=== PATIENT | male | born 1960 | race Caucasian/White ===

== ENCOUNTER 2024-01-02 21:00 | Emergency (ER) | payer OTHER, SELFPAY ==
[2024-01-02 21:05] VITALS: BP 147/87; PULSE 56; TEMP 36.6; O2SAT 98; BMI 19.7
--- NOTE | 2024-01-02 21:26 | ED.DENTAL1 ---
HPI - Dental/Oral General Chief complaint: Dental/Oral Stated complaint: MOUTH PAIN/INJURY Time Seen by Provider: 01/02/24 21:23 Source: patient Mode of arrival: walk-in Limitations: no limitations History of Present Illness HPI Narrative: patient has very poor dentition. planning on having dentures. Working in his yard yesterday and was struck by a tree branch left jaw/mouth. His left lower premolar tooth is loose and there is surrounding swelling and pain. Taking tylenol but not getting any relief Related Data Allergies Allergy/AdvReac Type Severity Reaction Status Date / Time No Known Drug Allergies Allergy Verified 01/02/24 21:08 Review of Systems ROS Status of ROS 10 or more systems reviewed and unremarkable except as noted in history and below Exam Constitutional Vital Signs, click to edit/add: Last Vital Signs Temp 97.8 F 01/02/24 21:05 Pulse 56 L 01/02/24 21:05 Resp 16 01/02/24 21:05 BP 147/87 H 01/02/24 21:05 Pulse Ox 98 01/02/24 21:05 O2 Del Method Room Air 01/02/24 21:05 Common normals: no apparent distress, average body habitus, oriented x3, no limitations, healthy appearing, alert and well nourished [facility] Common normals: normocephalic and head/scalp atraumatic Face and sinus images: 1. mild swelling Eye Common normals: EOMs intact bilaterally and conjunctivae normal Respiratory Other: diminished breath sounds Cardio Common normals: regular rate, regular rhythm, S1 normal heart sound and S2 normal heart sound Extremity Common normals: normal to inspection and full ROM Neuro Common normals: oriented x3, CN's II-XII intact bilaterally, moves all extremities, no focal motor deficits and no sensory deficits noted Psych Appearance: grossly normal Course Vital Signs Vital signs: Vital Signs Temperature 97.8 F 01/02/24 21:05 Pulse Rate 56 L 01/02/24 21:05 Respiratory Rate 16 01/02/24 21:05 Blood Pressure 147/87 H 01/02/24 21:05 Pulse Oximetry 98 01/02/24 21:05 Oxygen Delivery Method Room Air 01/02/24 21:05 Temperature 97.8 F 01/02/24 21:05 Pulse Rate 56 L 01/02/24 21:05 Respiratory Rate 16 01/02/24 21:05 Blood Pressure 147/87 H 01/02/24 21:05 Pulse Oximetry 98 01/02/24 21:05 Oxygen Delivery Method Room Air 01/02/24 21:05 MDM - Dental/Oral MDM Narrative Medical decision making narrative: has multiple dental caries. Struck in his mouth yesterday and now has loose lower left premolar and swelling and pain. Will treat as dental abscess with amoxicillin and recommend he use ibuprofen for pain Discharge Plan Discharge Stand Alone Forms: Portal Instructions Chief Complaint: Dental/Oral Clinical Impression: Dental abscess Patient Disposition: Home, Self-Care Print Language: Sinhala Instructions: Dental Abscess (ED) Additional Instructions: follow up with your dentist next week. use ibuprofen for pain instead of Tylenol Referrals: Physician,Non-Staff, MD [Primary Care Provider] - 1 week
[2024-01-02] MEDS: IBUPROFEN 400 MG TABLET 800 MG PO (21:36)
[2024-01-02] MEDS: AMOXICILLIN 500 MG CAPSULE 1000 MG PO (21:37)
[2024-01-02 21:40] VITALS: BP 136/81; PULSE 62; O2SAT 98
== END 2024-01-02 21:40 | disposition home or self-care (01) ==
PROVIDERS: Emergency Provider Internal Medicine
DX: K04.7 Periapical abscess without sinus (principal)
CPT/HCPCS: 99283